=== PATIENT | male | born 1980 | race Asian ===

== ENCOUNTER 2016-12-26 19:55 | Emergency (ER) | payer OTHER ==
[~2016-12-26] VITALS: Ht 170.2 cm; Wt 75.2 kg
[2016-12-26 19:59] VITALS: BP 130/88
[2016-12-26] MEDS ORDERED: LIDOCAINE 1%, 20ML INFIL ONE (20:30)
[2016-12-26] MEDS ORDERED: LIDOCAINE 1%, 20ML ONE (20:35)
== END 2016-12-26 21:21 | disposition home or self-care (01) ==
LOC: ED 20:45
DX: L03.012 Cellulitis of left finger (principal)
CPT/HCPCS: 26010; 99283